=== PATIENT | female | born 1980 | race American Indian/Alaskan Native ===

== ENCOUNTER → 2017-07-11 | Emergency (ER) | payer SELFPAY ==
[~2017-07-11] MED LIST: TYLENOL PO ONE
[2017-07-11 02:22] VITALS: BP 157/85
== END ==
LOC: ED 02:04
DX: S91.339A Puncture wound without foreign body, unspecified foot, initial encounter (principal); W26.0XXA Contact with knife, initial encounter; Y93.89 Activity, other specified; Y92.89 Other specified places as the place of occurrence of the external cause; Y99.8 Other external cause status; Z53.21 Procedure and treatment not carried out due to patient leaving prior to being seen by health care provider